=== PATIENT | female | born 1985 | race African-American/Black ===

== ENCOUNTER 2018-10-11 13:40 | Emergency (ER) | payer OTHER ==
--- NOTE | 2018-10-11 15:15 | EDM.PDOC ---
ED HPI GENERAL MEDICAL PROBLEM - General Chief Complaint: Abdominal Pain Stated Complaint: ABDOMINAL PAIN Time Seen by Provider: 10/11/18 14:15 Source of Information: Reports: Patient History Limitations: Reports: No Limitations - History of Present Illness INITIAL COMMENTS - FREE TEXT/NARRATIVE: 33-year-old female presents for evaluation and treatment of abdominal cramping. She states that she's had cramping the last week. Located throughout her mid abdomen with pain radiating into her back. Primarily in the right upper quadrant. She is appreciated that the pain seems to worsen after eating. She feels that spicy foods seem to aggravate the pain. States she has been taking Tylenol and this seemed to improve the pain. This pain seems to last approximately one hour before it dissipates on its own. At This time she does not have any pain. She reports associated symptoms of decreased appetite and nausea. She also reports that she is constipated as of late and has been having headaches. No fevers, chills or vomiting. No urinary symptoms. Last bowel movement was this morning. She is not appreciated any blood in her stool. Last menstrual period was on September 15, she reports some spotting and brownish discharge. Primary care provider is Dr. Balbuena. She is not yet seen her for this problem. Patient reports she is a history of anemia. Patient also has a history of PCOS. Middle Abdomen Pain Score (Numeric/FACES): 7 - Related Data Allergies Allergy/AdvReac Type Severity Reaction Status Date / Time latex Allergy Itching Verified 10/11/18 13:53 NSAIDS (Non-Steroidal Allergy Other Verified 10/11/18 13:53 Anti-Inflamma Penicillins Allergy Swelling Verified 10/11/18 13:53 pine nut Allergy Anaphylactic Verified 10/11/18 13:53 Shock Home Meds: Home Meds Calcium Carbonate [Calcium] 1 tab PO DAILY 10/11/18 [History] Cholecalciferol (Vitamin D3) [Vitamin D3] 1 tab PO DAILY 10/11/18 [History] Cinnamon [Cinnamon Oil] 1 tab PO DAILY 10/11/18 [History] Multivitamin [Multivitamins] 1 tab PO DAILY 10/11/18 [History] Omeprazole 20 mg PO DAILY 10/11/18 [History] Omeprazole 20 mg PO DAILY #20 tablet. 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 History: vaginal cerclage, lumpectomy - Past Surgical History HEENT Surgical History: Reports: Oral Surgery GI Surgical History: Reports: Bariatric Procedure, Other (See Below) Other GI Surgeries/Procedures: abdominal cerclage 2018 Female Surgical History: Reports: D&C Musculoskeletal Surgical History: Reports: Other (See Below) Other Musculoskeletal Surgeries/Procedures:: tumors removed from leg Social & Family History - Tobacco Use Smoking Status *Q: Never Smoker Second Hand Smoke Exposure: No - Caffeine Use Caffeine Use: Reports: Coffee - Recreational Drug Use Recreational Drug Use: No ED ROS GENERAL - Review of Systems Review Of Systems: See Below Constitutional: Denies: Fever, Chills GI/Abdominal: Reports: Abdominal Pain (RUQ into back), Constipation, Nausea. Denies: Vomiting : Reports: No Symptoms. Denies: Dysuria, Flank Pain Neurological: Reports: Headache ED EXAM, GI/ABD - Physical Exam Exam: See Below Exam Limited By: No Limitations General Appearance: Alert, WD/WN, No Apparent Distress Ears: Normal External Exam Nose: Normal Inspection Throat/Mouth: Normal Inspection, Normal Lips, Normal Voice, No Airway Compromise Respiratory/Chest: No Respiratory Distress, Lungs Clear, Normal Breath Sounds Cardiovascular: Normal Peripheral Pulses, Regular Rate, Rhythm, No Murmur GI/Abdominal Exam: Normal Bowel Sounds, Soft, Non-Tender, Other (negative murphys sign) Neurological: Alert, Oriented, Normal Cognition Psychiatric: Normal Affect, Normal Mood Skin Exam: Warm, Dry, Normal Color Course - Vital Signs Last Recorded V/S: Last Vital Signs Temp 97.5 F 10/11/18 13:54 Pulse 64 10/11/18 13:54 Resp 16 10/11/18 13:54 BP 156/97 H 10/11/18 13:54 Pulse Ox 100 10/11/18 13:54 - Orders/Labs/Meds Labs: Laboratory Tests 10/11/18 10/11/18 10/11/18 Range/Units 15:05 15:05 15:31 WBC 4.71 (3.98-10.04) K/mm3 RBC 4.41 (3.98-5.22) M/mm3 Hgb 11.8 (11.2-15.7) gm/L Hct 37.3 (34.1-44.9) % MCV 84.6 (79.4-94.8) fl MCH 26.8 (25.6-32.2) pg MCHC 31.6 L (32.2-35.5) g/dl RDW Std Deviation 37.4 (36.4-46.3) fL Plt Count 265 (182-369) K/mm3 MPV 10.8 (9.4-12.3) fl Neutrophils % (Manual) 41 (40-60) % Band Neutrophils % 0 (0-10) % Lymphocytes % (Manual) 55 H (20-40) % Atypical Lymphs % 0 % Monocytes % (Manual) 3 (2-10) % Eosinophils % (Manual) 0 L (0.7-5.8) % Basophils % (Manual) 1 (0.1-1.2) Platelet Estimate Adequate RBC Morph Comment Normal Sodium 139 (136-145) mEq/L Potassium 3.6 (3.5-5.1) mEq/L Chloride 104 (98-107) mEq/L Carbon Dioxide 26 (21-32) mEq/L Anion Gap 12.6 (5-15) BUN 11 (7-18) mg/dL Creatinine 0.8 (0.55-1.02) mg/dL Est Cr Clr Drug Dosing 95.38 mL/min Estimated GFR (MDRD) > 60 (>60) mL/min BUN/Creatinine Ratio 13.8 L (14-18) Glucose 117 H (74-106) mg/dL Calcium 9.2 (8.5-10.1) mg/dL Total Bilirubin 0.4 (0.2-1.0) mg/dL GGT 7 (5-55) U/L AST 35 (15-37) U/L ALT 59 (14-59) U/L Alkaline Phosphatase 84 (46-116) U/L C-Reactive Protein < 0.2 (<1.0) mg/dL Total Protein 7.3 (6.4-8.2) g/dl Albumin 3.4 (3.4-5.0) g/dl Globulin 3.9 gm/dL Albumin/Globulin Ratio 0.9 L (1-2) Lipase 94 (73-393) U/L Urine Color Yellow (Yellow) Urine Appearance Clear (Clear) Urine pH 7.0 (5.0-8.0) Ur Specific [place] 1.015 (1.005-1.030) Urine Protein Negative (Negative) Urine Glucose (UA) Negative (Negative) Urine Ketones Negative (Negative) Urine Occult Blood Negative (Negative) Urine Nitrite Negative (Negative) Urine Bilirubin Negative (Negative) Urine Urobilinogen 0.2 (0.2-1.0) Ur Leukocyte Esterase Negative (Negative) Urine RBC 0-5 (0-5) /hpf Urine WBC 0-5 (0-5) /hpf Ur Epithelial Cells 0-5 (0-5) /hpf Urine Bacteria Few (FEW) /hpf Urine Mucus Few (FEW) /hpf Urine HCG, Qual (NEGATIVE) 10/11/18 Range/Units 15:31 WBC (3.98-10.04) K/mm3 RBC (3.98-5.22) M/mm3 Hgb (11.2-15.7) gm/L Hct (34.1-44.9) % MCV (79.4-94.8) fl MCH (25.6-32.2) pg MCHC (32.2-35.5) g/dl RDW Std Deviation (36.4-46.3) fL Plt Count (182-369) K/mm3 MPV (9.4-12.3) fl Neutrophils % (Manual) (40-60) % Band Neutrophils % (0-10) % Lymphocytes % (Manual) (20-40) % Atypical Lymphs % % Monocytes % (Manual) (2-10) % Eosinophils % (Manual) (0.7-5.8) % Basophils % (Manual) (0.1-1.2) Platelet Estimate RBC Morph Comment Sodium (136-145) mEq/L Potassium (3.5-5.1) mEq/L Chloride (98-107) mEq/L Carbon Dioxide (21-32) mEq/L Anion Gap (5-15) BUN (7-18) mg/dL Creatinine (0.55-1.02) mg/dL Est Cr Clr Drug Dosing mL/min Estimated GFR (MDRD) (>60) mL/min BUN/Creatinine Ratio (14-18) Glucose (74-106) mg/dL Calcium (8.5-10.1) mg/dL Total Bilirubin (0.2-1.0) mg/dL GGT (5-55) U/L AST (15-37) U/L ALT (14-59) U/L Alkaline Phosphatase (46-116) U/L C-Reactive Protein (<1.0) mg/dL Total Protein (6.4-8.2) g/dl Albumin (3.4-5.0) g/dl Globulin gm/dL Albumin/Globulin Ratio (1-2) Lipase (73-393) U/L Urine Color (Yellow) Urine Appearance (Clear) Urine pH (5.0-8.0) Ur Specific [place] (1.005-1.030) Urine Protein (Negative) Urine Glucose (UA) (Negative) Urine Ketones (Negative) Urine Occult Blood (Negative) Urine Nitrite (Negative) Urine Bilirubin (Negative) Urine Urobilinogen (0.2-1.0) Ur Leukocyte Esterase (Negative) Urine RBC (0-5) /hpf Urine WBC (0-5) /hpf Ur Epithelial Cells (0-5) /hpf Urine Bacteria (FEW) /hpf Urine Mucus (FEW) /hpf Urine HCG, Qual Negative (NEGATIVE) - Re-Assessments/Exams Free Text/Narrative Re-Assessment/Exam: 10/11/18 17:05 I reviewed the labs with the patient. Possibly her gallbladder causing pain. Will obtain a ultrasound as an outpatient. She is in no acute distress at this time. No need for an emergent ultrasound now. Recommend follow-up with PCP for results and further work-up as needed. Also discussed possibility of an ulcer and possible need for an endoscopy. Will start on omeprazole and encouraged to avoid fatty and spicy foods. Discharge instructions as documented. Departure - Departure Time of Disposition: 17:07 Disposition: Home, Self-Care 01 Condition: Fair Clinical Impression: Abdominal pain - Discharge Information *PRESCRIPTION DRUG MONITORING PROGRAM REVIEWED*: No *COPY OF PRESCRIPTION DRUG MONITORING REPORT IN PATIENT TOBI: No Prescriptions: Omeprazole 20 mg PO DAILY #20 tablet. Instructions: Abdominal Pain, Adult, [id number] Referrals: Linh Stroud MD [Primary Care Provider] - Forms: ED Department Discharge Additional Instructions: you have an appointment for 8 AM tomorrow Monday, October 12 for an abdominal ultrasound. Please arrive at 7:30 at the [facility] for this. nothing to eat or drink after midnight to optimize this study. Results will be sent to your primary care provider. You may requests a CD with the and the results if you would like. Follow-up with family medicine next week for recheck of your symptoms. Take the omeprazole as prescribed. 1 tab daily. Recommend avoiding fatty foods and spicy foods. Also recommend making a food journal to see if you can identify any additional triggers. Position to the ER if your symptoms change or worsen.
== END 2018-10-11 17:17 | disposition home or self-care (01) ==
LOC: JD.ED 13:40
DX: R10.11 Right upper quadrant pain (principal); Z88.0 Allergy status to penicillin; Z91.018 Allergy to other foods; Z88.6 Allergy status to analgesic agent; Z79.899 Other long term (current) drug therapy; Z79.84 Long term (current) use of oral hypoglycemic drugs; Z98.890 Other specified postprocedural states; Z98.84 Bariatric surgery status; Z91.040 Latex allergy status
CPT/HCPCS: 36415; 80053; 81001; 81025; 82977; 83690; 85007; 85027; 86140; 99283; 99284

== ENCOUNTER 2019-03-11 15:00 | Emergency (ER) | payer OTHER ==
--- NOTE | 2019-03-11 15:58 | EDM.PDOC ---
<Darlene Ann - Last Filed: 03/11/19 16:50> ED HPI GENERAL MEDICAL PROBLEM - General Chief Complaint: Abdominal Pain Stated Complaint: LOWER LEG AND ABDOMEN PAIN Time Seen by Provider: 03/11/19 15:37 Source of Information: Reports: Patient History Limitations: Reports: No Limitations - History of Present Illness INITIAL COMMENTS - FREE TEXT/NARRATIVE: 33 year old female who presents to the ED with complaints of bilateral lower abdominal pain. States she has a history of PCOS. Pt reports that shes had this pain for two weeks. Describes it as a scraping pain in her bladder. Pain becomes more severe when she sits on the toilet to void, but doesnt get any better after voiding. Denies burning with urination. Reports that intercourse is very painful. Has had issues with constipation and bloating for two weeks. Pt also complains of numbness to her left pisano that she noticed yesterday. States that sensation to her foot, knee and thigh are all normal and denies difficulty ambulating. Bilateral Abdomen Pain Score (Numeric/FACES): 7 - Related Data Allergies Allergy/AdvReac Type Severity Reaction Status Date / Time latex Allergy Itching Verified 03/11/19 15:12 NSAIDS (Non-Steroidal Allergy Other Verified 03/11/19 15:12 Anti-Inflamma Penicillins Allergy Swelling Verified 03/11/19 15:12 pine nut Allergy Anaphylactic Verified 03/11/19 15:12 Shock Home Meds: Home Meds Calcium Carbonate [Calcium] 1 tab PO DAILY 10/11/18 [History] Cholecalciferol (Vitamin D3) [Vitamin D3] 1 tab PO DAILY 10/11/18 [History] Cinnamon [Cinnamon Oil] 1 tab PO DAILY 10/11/18 [History] Multivitamin [Multivitamins] 1 tab PO DAILY 10/11/18 [History] Omeprazole 20 mg PO DAILY 10/11/18 [History] Omeprazole 20 mg PO DAILY #20 tablet. 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: vaginal cerclage, lumpectomy - Past Surgical History HEENT Surgical History: Reports: Oral Surgery GI Surgical History: Reports: Bariatric Procedure, Other (See Below) Other GI Surgeries/Procedures: abdominal cerclage 2018 Female Surgical History: Reports: D&C Musculoskeletal Surgical History: Reports: Other (See Below) Other Musculoskeletal Surgeries/Procedures:: tumors removed from leg Social & Family History - Caffeine Use Caffeine Use: Reports: Coffee ED ROS GENERAL - Review of Systems Review Of Systems: See Below Constitutional: Reports: No Symptoms HEENT: Reports: No Symptoms Respiratory: Reports: No Symptoms Cardiovascular: Reports: No Symptoms Endocrine: Reports: No Symptoms GI/Abdominal: Reports: Abdominal Pain, Constipation, Distension. Denies: Black Stool, Bloody Stool, Diarrhea, Decreased Appetite, Nausea, Vomiting : Reports: Frequency, Pain, Urgency. Denies: Discharge, Flank Pain, Hematuria , Incontinence Musculoskeletal: Reports: No Symptoms Skin: Reports: No Symptoms Neurological: Reports: Numbness (left pisano) Psychiatric: Reports: No Symptoms Hematologic/Lymphatic: Reports: No Symptoms Immunologic: Reports: No Symptoms ED EXAM, RENAL/ - Physical Exam Exam: See Below General Appearance: Alert, WD/WN, No Apparent Distress Ears: Normal External Exam, Hearing Grossly Normal Nose: Normal Inspection, No Blood Throat/Mouth: Normal Inspection, Normal Voice, No Airway Compromise Head: Atraumatic, Normocephalic Neck: Normal Inspection, Supple Respiratory/Chest: No Respiratory Distress, Lungs Clear, Normal Breath Sounds, No Accessory Muscle Use, Chest Non-Tender Cardiovascular: Normal Peripheral Pulses, Regular Rate, Rhythm, No Edema, No Murmur GI/Abdominal: Normal Bowel Sounds, Soft, Tender (suprapubic area is tender on palpation) (Female) Exam: Deferred Rectal (Female) Exam: Deferred Back Exam: Normal Inspection Extremities: Normal Inspection, Normal Range of Motion, Non-Tender, No Pedal Edema, Normal Capillary Refill Neurological: Alert, Oriented, Normal Cognition, No Motor/Sensory Deficits Psychiatric: Normal Affect, Normal Mood Skin Exam: Warm, Dry, Intact, Normal Color, No Rash Lymphatic: No Adenopathy Course - Vital Signs Last Recorded V/S: Last Vital Signs Temp 98.9 F 03/11/19 15:07 Pulse 65 03/11/19 15:07 Resp 15 03/11/19 15:07 BP 135/96 H 03/11/19 15:07 Pulse Ox 98 03/11/19 15:07 - Orders/Labs/Meds Labs: Laboratory Tests 03/11/19 Range/Units 16:07 Urine Color Yellow (Yellow) Urine Appearance Clear (Clear) Urine pH 6.0 (5.0-8.0) Ur Specific [place] > or = 1.030 (1.005-1.030) Urine Protein Negative (Negative) Urine Glucose (UA) Negative (Negative) Urine Ketones Negative (Negative) Urine Occult Blood Negative (Negative) Urine Nitrite Negative (Negative) Urine Bilirubin Negative (Negative) Urine Urobilinogen 0.2 (0.2-1.0) Ur Leukocyte Esterase Negative (Negative) Urine RBC 0-5 (0-5) /hpf Urine WBC 0-5 (0-5) /hpf Ur Epithelial Cells 0-5 (0-5) /hpf Urine Bacteria Few (FEW) /hpf Urine Mucus Few (FEW) /hpf - Re-Assessments/Exams Free Text/Narrative Re-Assessment/Exam: 03/11/19 16:01 UA with micro has been ordered on this patient. Free Text/Narrative Re-Assessment/Exam: 03/11/19 16:50 The patient's urinalysis is unremarkable. I spoke with the patient regarding doing a transvaginal US here today, or as an outpatient and follow up with Dr. Medeiros, or just following up with Dr. Medeiros. Pt requests to have a transvaginal ultrasound today. Departure - Departure Disposition: Home, Self-Care 01 Clinical Impression: Pelvic pain, Bilateral ovarian cysts - Discharge Information Instructions: Pelvic Pain, Female, [id number], Ovarian Cyst, [id number] Referrals: Hugo Medeiros MD [Primary Care Provider] - Forms: ED Department Discharge Additional Instructions: You may safely take Tylenol 2 to 3 times daily if needed for severe pain. Try see Dr. Medeiros or Nat Ryan later this week or next available appointment, return to ED as needed if symptoms worsening in any way. <Tres Chandler - Last Filed: 03/13/19 08:35> Course - Re-Assessments/Exams Free Text/Narrative Re-Assessment/Exam: 03/13/19 08:32 Initial history and exam was done by ELVIRA Burnette student. I agree with her history and exam as documented. I have also examined and interviewed patient. As noted UA did not show UTI. Therefore pelvic ultrasound was done and did show numerous bilateral cysts up to 4 cm on one side and 5-1/2 cm on the other is a very small amount of adjacent fluid noted. I do strongly suspect her discomfort is due to the cysts and possible leakage or rupture of a cyst. This has been discussed with patient. I have encouraged her to follow-up with one of her OB/ SIGNALS COLLECTOR/ANALYST providers later this week or next available appointment. Discharge instructions as documented. 03/13/19 08:34 Departure - Departure Time of Disposition: 19:28 Condition: Fair
--- NOTE | 2019-03-11 18:29 | US ---
Pelvic ultrasound: Multiple real-time images were obtained transvaginally. Comparison: No prior pelvic ultrasound. Findings: Numerous cysts are seen within both ovaries. Findings raise a possibility of ovarian overstimulation for fertility. Largest cyst on the right side measures 4.2 cm and largest cyst on the left side measures 5.6 cm. Small amount of free fluid is seen within the pelvis. Uterus is anteverted and shows no discrete myometrial abnormality. Endometrial thickness is normal at 6 mm. Measurements: Uterus: Length 9.1 cm, AP height of 4.6 cm, transverse width 5.2 cm Right ovary: 6.4 x 24.2 x 6.0 cm Left ovary: 10.8 x 6.5 x 8.3 cm Impression: 1. Numerous cysts within both ovaries raising the possibility of ovarian overstimulation for fertility. 2. Small amount of fluid within the pelvis which is felt to be incidental. 3. No discrete uterine abnormality is appreciated. Diagnostic code #3
== END 2019-03-11 19:37 | disposition home or self-care (01) ==
LOC: JD.ED 15:00
DX: N83.202 Unspecified ovarian cyst, left side (principal); N83.201 Unspecified ovarian cyst, right side; Z91.040 Latex allergy status; Z88.6 Allergy status to analgesic agent; Z88.0 Allergy status to penicillin; Z91.018 Allergy to other foods
CPT/HCPCS: 76830; 76830-26; 81001; 99284-25

== ENCOUNTER 2020-01-20 15:43 | Emergency (ER) | payer OTHER ==
--- NOTE | 2020-01-20 16:44 | EDM.PDOC ---
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 Slight lower pelvic discomfort only, no major cramping. Her LMP was about 6 to 7 wks ago. Her HCG were slow to go up but more recently have been doubling. No chest pain or difficulty breathing. - Related Data Allergies Allergy/AdvReac Type Severity Reaction Status Date / Time latex Allergy Severe Itching Verified 01/20/20 16:11 NSAIDS (Non-Steroidal Allergy Severe Other Verified 01/20/20 16:11 Anti-Inflamma Penicillins Allergy Severe Swelling Verified 01/20/20 16:11 pine nut Allergy Severe Anaphylactic Verified 01/20/20 16:11 Shock Home Meds: Home Meds Calcium Carbonate [Calcium] 1 tab PO DAILY 10/11/18 [History] Cholecalciferol (Vitamin D3) [Vitamin D3] 1 tab PO DAILY 10/11/18 [History] Multivitamin [Multivitamins] 1 tab PO DAILY 10/11/18 [History] metFORMIN [Glucophage] 1,000 mg PO DAILY 10/11/18 [History] Ferrous Sulfate [Slow Fe] 140 mg PO DAILY 01/20/20 [History] Sertraline [Zoloft] 100 mg PO DAILY 01/20/20 [History] Past Medical History HEENT History: Reports: Impaired Vision Other HEENT History: glasses Gastrointestinal History: Reports: Chronic Constipation, GERD, Other (See Below) Other Gastrointestinal History: constipation for the past two weeks 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, 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 , Other (See Below) 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 History: vaginal cerclage, lumpectomy Psychiatric History: Reports: Depression Hematologic History: Reports: Anemia, B12 Deficiency, Other (See Below) Other Hematologic History: blood transfusion 09/29/10 post d&c - Infectious Disease History Infectious Disease History: Reports: Chicken Pox - Past Surgical History HEENT Surgical History: Reports: Oral Surgery GI Surgical History: Reports: Bariatric Procedure, Other (See Below) Other GI Surgeries/Procedures: abdominal cerclage 2018 Female Surgical History: Reports: D&C Musculoskeletal Surgical History: Reports: Other (See Below) Other Musculoskeletal Surgeries/Procedures:: tumors removed from leg Social & Family History - Tobacco Use Smoking Status *Q: Never Smoker - Caffeine Use Caffeine Use: Reports: Tea Caffeine Use Comment: occasional - Recreational Drug Use Recreational Drug Use: No ED ROS GENERAL - Review of Systems Review Of Systems: See Below HEENT: Reports: No Symptoms Cardiovascular: Denies: Chest Pain GI/Abdominal: Denies: Abdominal Pain, Nausea, Vomiting Musculoskeletal: Reports: No Symptoms. Denies: Back Pain Neurological: Reports: No Symptoms ED EXAM, RENAL/ - Physical Exam Exam: See Below General Appearance: Alert, No Apparent Distress Head: Atraumatic Neck: Supple Respiratory/Chest: No Respiratory Distress Cardiovascular: Regular Rate, Rhythm GI/Abdominal: Soft, Non-Tender. No: Guarding Extremities: Normal Inspection. No: Pedal Edema, Leg Pain Neurological: Alert, Oriented, No Motor/Sensory Deficits Course - Vital Signs Last Recorded V/S: Last Vital Signs Temp 97.3 F 01/20/20 15:58 Pulse 77 01/20/20 15:58 Resp 16 01/20/20 15:58 BP 124/93 H 01/20/20 15:58 Pulse Ox 99 01/20/20 15:58 - Orders/Labs/Meds Labs: Laboratory Tests 01/20/20 Range/Units 16:37 HCG, Quant 956.0 mIU/mL - Re-Assessments/Exams Free Text/Narrative Re-Assessment/Exam: 01/22/20 07:30 US does not show an inutrauterine gest. sac. This may be very early , could be possible early ectopic, HCG only 956. follow up and return precautions discussed with patient. Discharge instr. as documented. Departure - Departure Time of Disposition: 19:06 Disposition: Home, Self-Care 01 Condition: Fair Clinical Impression: Vaginal bleeding in - Discharge Information Instructions: Activity Restriction During Referrals: Maty Stevens MD [Primary Care Provider] - Forms: ED Department Discharge Additional Instructions: Your Hcg today was 956, no intrauterine gestational sac visualized on today's ultrasound. This could be very early , miscarriage, or early nonvisua lized ectopic . Call Dr Camacho's office tomorrow for further guidance. Follow up ultrasound recomended by Radiolgist for about 11 days from now. Return to ED for heavy vaginal bleeding soaking more than 1 pad per hour for more than 2 hours or otherwise as needed. Sepsis Event Note (ED) - Evaluation Sepsis Screening Result: No Definite Risk
--- NOTE | 2020-01-20 18:57 | US ---
First trimester obstetrical ultrasound: Multiple real-time images were obtained transvaginally. Comparison: No previous obstetrical imaging for current . Findings: Left ovary shows a 5.4 cm cyst which appears simple. Right ovary shows a smaller simple appearing cyst measuring 3.7 cm. No intrauterine gestational sac is seen. Endometrial thickness measures 1.0 cm. Impression: 1. 5.4 cm cyst within the left ovary and 3.7 cm cyst within the right ovary. 2. Endometrial thickness of 1.0 cm. No intrauterine gestational sac is seen. Note: With positive test, findings may represent too early to visualize, miscarriage as well as less likely nonvisualized ectopic . If patient remains stable, recommend repeat study in 11 days. Diagnostic code #3 This report was dictated in MDT
== END 2020-01-20 19:52 | disposition home or self-care (01) ==
LOC: SUPCPDRO 15:43 → JD.ED 15:43
DX: O20.9 Hemorrhage in early pregnancy, unspecified (principal); O99.011 Anemia complicating pregnancy, first trimester; Z3A.01 Less than 8 weeks gestation of pregnancy; F32.9 Major depressive disorder, single episode, unspecified; Z91.040 Latex allergy status; Z91.018 Allergy to other foods; Z88.0 Allergy status to penicillin; Z88.6 Allergy status to analgesic agent; Z79.899 Other long term (current) drug therapy
CPT/HCPCS: 36415; 76817; 76817-26; 84702; 99284-25

== ENCOUNTER 2021-03-07 16:47 | Emergency (ER) | payer MEDICAID, OTHER ==
--- NOTE | 2021-03-07 17:47 | EDM.PDOC ---
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 Patient states she has had 5 pregnancies, with 0 viable births. This is the furthest along she has ever been. She is concerned about the wellbeing due to the fall. States that she was on her bed, and rolled off and landed up on her tote bag on her belly yesterday. She is not felt the baby move since then. Not having any vaginal bleeding, gush of fluids but states that she was having some abdomen cramping. Patient denies any other sick-like symptoms, fever/chills, cough/shortness of breath, nausea/vomiting/diarrhea. heart rate time of triage is 160 bpm. Right Groin Pain Score (Numeric/FACES): 5 - Related Data Allergies Allergy/AdvReac Type Severity Reaction Status Date / Time latex Allergy Severe Itching Verified 03/07/21 17:24 NSAIDS (Non-Steroidal Allergy Severe Other Verified 03/07/21 17:24 Anti-Inflamma Penicillins Allergy Severe Swelling Verified 03/07/21 17:24 pine nut Allergy Severe Anaphylactic Verified 03/07/21 17:24 Shock Home Meds: Home Meds Sertraline [Zoloft] 100 mg PO DAILY 01/20/20 [History] Cyclobenzaprine [Flexeril] 5 mg PO BID 03/07/21 [History] Escitalopram [Lexapro] 10 mg PO DAILY 03/07/21 [History] Gabapentin [Neurontin] 300 mg PO DAILY 03/07/21 [History] 95/Iron Fum/Folic/Dha [ + Dha Combo Pack] 1 tab PO DAILY 03/07/21 [History] Promethazine [Phenadoz] 25 mg PO DAILY PRN 03/07/21 [History] ondansetron HCL [Zofran] 4 mg PO Q6HR PRN 03/07/21 [History] Past Medical History HEENT History: Reports: Impaired Vision Other HEENT History: glasses Respiratory History: Reports: Asthma Gastrointestinal History: Reports: Chronic Constipation, GERD Other Gastrointestinal History: constipation for the past two weeks 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: Polycystic Ovaries, , Spontaneous (x4), Other (See Below) : 5 Para: 0 Other BUSINESS EDUCATION INSTRUCTOR History: vaginal cerclage, lumpectomy Psychiatric History: Reports: Depression Endocrine/Metabolic History: Reports: Diabetes, Type II Hematologic History: Reports: Anemia, B12 Deficiency, Other (See Below) Other Hematologic History: blood transfusion 09/29/10 post d&c - Infectious Disease History Infectious Disease History: Reports: Chicken Pox, Novel Coronavirus - Past Surgical History HEENT Surgical History: Reports: Oral Surgery GI Surgical History: Reports: Bariatric Procedure, Other (See Below) Other GI Surgeries/Procedures: abdominal cerclage 2018 Female Surgical History: Reports: D&C Musculoskeletal Surgical History: Reports: Other (See Below) Other Musculoskeletal Surgeries/Procedures:: tumors removed from leg Social & Family History - Tobacco Use Tobacco Use Status *Q: Never Tobacco User Second Hand Smoke Exposure: No - Caffeine Use Caffeine Use: Reports: Coffee, Soda Caffeine Use Comment: occasional - Recreational Drug Use Recreational Drug Use: No ED ROS GENERAL - Review of Systems Review Of Systems: Comprehensive ROS is negative, except as noted in HPI. ED EXAM - Physical Exam Exam: See Below Exam Limited By: No Limitations General Appearance: Alert, WD/WN, No Apparent Distress Respiratory/Chest: No Respiratory Distress, Lungs Clear, Normal Breath Sounds, No Accessory Muscle Use, Chest Non-Tender Cardiovascular: Normal Peripheral Pulses, Regular Rate, Rhythm, No Edema GI/Abdominal Exam: Normal Bowel Sounds, Soft, Non-Tender, No Distention, No Mass Heart Tones: Present Heart Tones per Min: 160 Movement: Not Appreciated Extremities: Normal Inspection, Normal Capillary Refill Neurological: Alert, Oriented, Normal Cognition, No Motor/Sensory Deficits Psychiatric: Normal Affect, Normal Mood Skin Exam: Warm, Dry, Intact, Normal Color, No Rash Course - Vital Signs Last Recorded V/S: Last Vital Signs Temp 97.3 F 03/07/21 17:23 Pulse 86 03/07/21 17:23 Resp 18 03/07/21 17:23 BP 129/89 03/07/21 17:23 Pulse Ox 100 03/07/21 17:23 - Orders/Labs/Meds Orders: Active Orders 24 hr Category Date Time Status OB Ltd 1 or More Fetus [US] Stat Exams 03/07/21 17:35 Ordered - Re-Assessments/Exams Free Text/Narrative Re-Assessment/Exam: 03/07/21 17:46 Patient presents to the ER for evaluation of her . Although heart tones were identified at triage, patient is requesting ultrasound be performed for further wellbeing. OB limited ultrasound has been ordered. 03/07/21 20:08 Ultrasound has been performed, and reviewed by myself and Dr. Cantu preliminarily, he does not see any major abnormalities that would suggest harm or demise. Official radiology read is still pending. 03/07/21 21:15 Ultrasound demonstrates a age of 19 weeks 5 days, single living intrauterine fetus with no evidence of abruption or previa. There is an appropriate amount amniotic fluid identified. We will discharge patient home with general recommendations. Departure - Departure Time of Disposition: 21:15 Disposition: Home, Self-Care 01 Condition: Good Clinical Impression: Encounter for ultrasound Fall Qualifiers: Encounter type: initial encounter Qualified Code(s): W19.XXXA - Unspecified fall, initial encounter - Discharge Information *PRESCRIPTION DRUG MONITORING PROGRAM REVIEWED*: No *COPY OF PRESCRIPTION DRUG MONITORING REPORT IN PATIENT TOBI: No Referrals: Maty Stevens MD [Primary Care Provider] - Forms: ED Department Discharge Additional Instructions: Your evaluated in the ER today for your fall in . heart tones were identified at 160 bpm on initial exam, and the ultrasound performed at today's visit does demonstrate a single live intrauterine gestation with a heart rate of 152 bpm. Amniotic fluid was appropriate for gestational age, and there was no sign of placental abruption or previa. This is all good news, and means that your baby is well and healthy. 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 You may take some Tylenol if needed for ongoing abdominal discomfort or otherwise. Do not hesitate to return to the ER at any time if symptoms change or worsen. Sepsis Event Note (ED) - Focused Exam Vital Signs: Vital Signs Temp Pulse Resp BP Pulse Ox 03/07/21 17:23 97.3 F 86 18 129/89 100 - My Orders Last 24 Hours: My Active Orders 03/07/21 17:35 OB Ltd 1 or More Fetus [US] Stat - Assessment/Plan Last 24 Hours: My Active Orders 03/07/21 17:35 OB Ltd 1 or More Fetus [US] Stat
--- NOTE | 2021-03-08 08:26 | US ---
Obstetrical ultrasound: Multiple real-time images were obtained transabdominally. Comparison: No previous study available for current . Dates: Current ultrasound: [facility] 07/27/21, gestational age 19 weeks 5 days presentation: Mobile Placenta: Anterior with no findings of placenta previa, no findings of abruption. Amniotic fluid: MARIMAR 13.3 cm Measurements: BPD: 4.50 cm - 19 weeks 5 days Head circumference: 16.50 cm - 19 weeks 2 days Abdominal circumference: 14.13 cm - 19 weeks 4 days Femur length: 3.17 cm - 19 weeks 6 days Estimated weight: 303 g (0 lbs. 11 oz.), estimated weight is at the 40th percentile for age by current ultrasound Heart rate: 152 BPM Cervical length: 3.2 cm Impression: 1. Single intrauterine fetus mobile in presentation. Dates as noted above. 2. Anterior placenta with no findings of placenta previa or abruption. 3. Normal amniotic fluid volume. Diagnostic code #1 I agree with preliminary report from [facility], finalized on 03/07/21, 10:11 PM CDT, code 1
== END 2021-03-07 21:44 | disposition home or self-care (01) ==
LOC: JD.ED 16:47
DX: O9A.23 Injury, poisoning and certain other consequences of external causes complicating the puerperium (principal); O24.419 Gestational diabetes mellitus in pregnancy, unspecified control; Z91.040 Latex allergy status; Z88.0 Allergy status to penicillin; Z88.8 Allergy status to other drugs, medicaments and biological substances; Z91.018 Allergy to other foods; Z86.16 Personal history of COVID-19; Z3A.19 19 weeks gestation of pregnancy; W06.XXXA Fall from bed, initial encounter
CPT/HCPCS: 76815; 76815-26; 99283-25

== ENCOUNTER 2021-04-23 20:18 | Emergency (ER) | payer MEDICAID ==
--- NOTE | 2021-04-23 21:10 | EDM.PDOC ---
ED HPI GENERAL MEDICAL PROBLEM - General Chief Complaint: ENT Problem Stated Complaint: SORE THROAT/COUGH/SOB/DYSPHAGIA Time Seen by Provider: 04/23/21 20:44 Source of Information: Reports: Patient, RN Notes Reviewed History Limitations: Reports: No Limitations - History of Present Illness INITIAL COMMENTS - FREE TEXT/NARRATIVE: Patient is a 36-year-old female who presents to the ER for evaluation of her sore throat and shortness of breath. States that she has been sick for about 3 days, she went to the walk-in clinic yesterday and had a rapid Covid screen and a strep screen and these were both negative. States that her symptoms seem to be lingering, she has pain in her throat pretty much all the time, feels congested in her sinuses, and has had a nonproductive cough. She is 26 weeks as well. No complications with the at this time. No nausea or vomiting or diarrhea. No obvious fever or chills. States that she has not really been taking much Tylenol because it does not seem to be helping much. Throat Pain Score (Numeric/FACES): 5 - Related Data Allergies Allergy/AdvReac Type Severity Reaction Status Date / Time Penicillins Allergy Severe Swelling Verified 04/23/21 20:53 pine nut Allergy Severe Anaphylactic Verified 04/23/21 20:53 Shock latex Allergy Intermediate Itching Verified 04/23/21 20:53 NSAIDS (Non-Steroidal Allergy Unknown Other Verified 04/23/21 20:53 Anti-Inflamma Home Meds: Home Meds Cyclobenzaprine [Flexeril] 5 mg PO BID 03/07/21 [History] Escitalopram [Lexapro] 10 mg PO DAILY 03/07/21 [History] Gabapentin [Neurontin] 300 mg PO DAILY 03/07/21 [History] 95/Iron Fum/Folic/Dha [ + Dha Combo Pack] 1 tab PO DAILY 03/07/21 [History] Promethazine [Phenadoz] 25 mg PO DAILY PRN 03/07/21 [History] ondansetron HCL [Zofran] 4 mg PO Q6HR PRN 03/07/21 [History] Pantoprazole Sodium [Protonix] 20 mg PO DAILY 04/23/21 [History] buPROPion [Wellbutrin] 100 mg PO BID 04/23/21 [History] Past Medical History HEENT History: Reports: Impaired Vision Other HEENT History: glasses Respiratory History: Reports: Asthma Gastrointestinal History: Reports: Chronic Constipation, GERD Other Gastrointestinal History: constipation for the past two weeks 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: Polycystic Ovaries, , Spontaneous , Other (See Below) 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: vaginal cerclage, lumpectomy Psychiatric History: Reports: Depression Endocrine/Metabolic History: Reports: Diabetes, Type II Hematologic History: Reports: Anemia, B12 Deficiency, Other (See Below) Other Hematologic History: blood transfusion 09/29/10 post d&c - Infectious Disease History Infectious Disease History: Reports: Chicken Pox, Novel Coronavirus - Past Surgical History HEENT Surgical History: Reports: Oral Surgery GI Surgical History: Reports: Bariatric Procedure, Other (See Below) Other GI Surgeries/Procedures: abdominal cerclage 2018 Female Surgical History: Reports: D&C Musculoskeletal Surgical History: Reports: Other (See Below) Other Musculoskeletal Surgeries/Procedures:: tumors removed from leg Social & Family History - Tobacco Use Tobacco Use Status *Q: Never Tobacco User - Caffeine Use Caffeine Use: Reports: Coffee, Soda Caffeine Use Comment: occasional ED ROS ENT - Review of Systems Review Of Systems: Comprehensive ROS is negative, except as noted in HPI. ED EXAM, ENT - Physical Exam Exam: See Below Exam Limited By: No Limitations General Appearance: Alert, WD/WN, No Apparent Distress Mouth/Throat: Normal Inspection, Normal Gums, Normal Lips, Normal Teeth, Pharyngeal Erythema (bilateral) Respiratory/Chest: No Respiratory Distress, Lungs Clear, Normal Breath Sounds, No Accessory Muscle Use, Chest Non-Tender Cardiovascular: Normal Peripheral Pulses, Regular Rate, Rhythm, No Edema GI/Abdominal: Normal Bowel Sounds, Soft, Non-Tender, No Distention, No Mass Extremities: Normal Inspection, Normal Capillary Refill Neurological: Alert, Oriented, Normal Cognition, No Motor/Sensory Deficits Psychiatric: Normal Affect, Normal Mood Skin: Warm, Dry, Intact, Normal Color, No Rash Course - Vital Signs Last Recorded V/S: Last Vital Signs Temp 98.2 F 04/23/21 20:50 Pulse 70 04/23/21 20:50 Resp 18 04/23/21 20:50 BP 129/88 04/23/21 20:50 Pulse Ox 100 04/23/21 20:50 - Orders/Labs/Meds Labs: Laboratory Tests 04/23/21 Range/Units 22:33 Influenza Type A RNA Negative (NEGATIVE) RSV RNA (INAAT) Positive H (NEGATIVE) Influenza Type B RNA Negative (NEGATIVE) SARS-CoV-2 RNA ([facility]) Negative (NEGATIVE) Group A Strep (PCR) Not detected (NOT DETECT) - Re-Assessments/Exams Free Text/Narrative Re-Assessment/Exam: 04/23/21 21:10 Presents to the ER for the evaluation of her sore throat and Covid-like symptoms, she will be reswabbed for COVID-19/flu/RSV and strep. Departure - Departure Time of Disposition: 23:24 Disposition: Home, Self-Care 01 Condition: Good Clinical Impression: Pharyngitis Qualifiers: Pharyngitis/tonsillitis etiology: unspecified etiology Qualified Code(s): J02.9 - Acute pharyngitis, unspecified - Discharge Information *PRESCRIPTION DRUG MONITORING PROGRAM REVIEWED*: No *COPY OF PRESCRIPTION DRUG MONITORING REPORT IN PATIENT TOBI: No Instructions: Pharyngitis, [id number] Referrals: Linh Stroud MD [Primary Care Provider] - Forms: ED Department Discharge Additional Instructions: You were evaluated in the ER today for your ongoing illness and sore throat. Your COVID/flu and strep screens were negative at today's visit. Recommend you try 500 mg Tylenol every 6 hours as needed for ongoing pain management for your throat. You may also try the Chloraseptic throat spray to try to help numb the throat sparingly to see if this also helps relieve some of your symptoms. If symptoms do not seem to be improving much in a few days to a weeks time, recommend you follow-up with your regular provider for ongoing health management and reevaluation of your symptoms. Sepsis Event Note (ED) - Evaluation Sepsis Screening Result: No Definite Risk
[2021-04-23 23:20] LABS: STREP A BY PCR NOT DETECTED (NOT DETECT)
[2021-04-23 23:31] LABS: CORONAVIRUS COVID-19 NAA NEGATIVE (NEGATIVE)
== END 2021-04-24 00:10 | disposition home or self-care (01) ==
LOC: JD.ED 20:18
DX: J02.9 Acute pharyngitis, unspecified (principal); E11.9 Type 2 diabetes mellitus without complications; K21.9 Gastro-esophageal reflux disease without esophagitis; Z88.0 Allergy status to penicillin; Z91.040 Latex allergy status; Z91.018 Allergy to other foods; Z88.8 Allergy status to other drugs, medicaments and biological substances; Z79.899 Other long term (current) drug therapy; Z86.16 Personal history of COVID-19; Z20.822 Contact with and (suspected) exposure to COVID-19
CPT/HCPCS: 0240U; 87634; 87651; 99283

== ENCOUNTER 2021-07-13 12:40 | Emergency (ER) | payer MEDICAID ==
[2021-07-13] MEDS: Sodium Chloride 0.9% 10 ML Syringe FLUSH PRN ×2 (14:36→17:03)
[2021-07-13] MEDS ORDERED: HYDROmorphone 0.5 MG/0.5 ML Syringe IVPUSH ONE (15:28)
[2021-07-13] MEDS ORDERED: Sodium Chloride 0.9% 10 ML Syringe FLUSH ONE (16:43)
[2021-07-13] MEDS ORDERED: Iopamidol 755 Mg/ML 100 ML Bottle IVPUSH ONE (16:43)
[2021-07-13] MEDS ORDERED: Sodium Chloride 0.9% 100 ML IV SCH (16:45)
[2021-07-13 18:28] VITALS: BP 133/103; PULSE 110
== END 2021-07-13 18:42 | disposition home or self-care (01) ==
LOC: JD.ED 12:40
DX: R60.0 Localized edema (principal); E11.40 Type 2 diabetes mellitus with diabetic neuropathy, unspecified; J45.909 Unspecified asthma, uncomplicated; K21.9 Gastro-esophageal reflux disease without esophagitis; Z88.0 Allergy status to penicillin; Z91.040 Latex allergy status; Z88.8 Allergy status to other drugs, medicaments and biological substances; Z91.018 Allergy to other foods; Z79.899 Other long term (current) drug therapy
CPT/HCPCS: 36415; 71275; 71275-26; 80053; 81001; 83735; 83880; 84484; 85025; 93005; 93010; 93970; 93970-26; 96374; 99284-25; 99285; J1170; Q9967

== ENCOUNTER 2021-08-29 23:23 | Emergency (ER) | payer MEDICAID ==
[2021-08-30] MEDS ORDERED: oxyCODONE 5 MG Tab PO ONE (00:37)
== END 2021-08-30 04:00 | disposition home or self-care (01) ==
LOC: JD.ED 23:23
DX: R22.41 Localized swelling, mass and lump, right lower limb (principal); K21.9 Gastro-esophageal reflux disease without esophagitis; Z88.0 Allergy status to penicillin; Z91.040 Latex allergy status; Z91.018 Allergy to other foods; Z88.8 Allergy status to other drugs, medicaments and biological substances; Z79.899 Other long term (current) drug therapy
CPT/HCPCS: 36415; 73610; 73630; 76881; 80048; 85025; 85379; 85610; 99284; A9270

== ENCOUNTER 2021-09-13 02:23 | Emergency (ER) | payer MEDICAID ==
[2021-09-13] MEDS ORDERED: diphenhydrAMINE 50 MG Cap PO ONE (03:05)
[2021-09-13] MEDS ORDERED: Famotidine 20 MG Tab PO ONE (03:05)
== END 2021-09-13 04:32 | disposition home or self-care (01) ==
LOC: JD.ED 02:23
DX: R60.0 Localized edema (principal); E11.9 Type 2 diabetes mellitus without complications; K21.9 Gastro-esophageal reflux disease without esophagitis; Z88.0 Allergy status to penicillin; Z91.040 Latex allergy status; Z91.018 Allergy to other foods; Z88.8 Allergy status to other drugs, medicaments and biological substances
CPT/HCPCS: 99283; A9270; Q0163